=== PATIENT | male | born 1995 | race Two or more races ===

== ENCOUNTER 2017-10-14 10:22 | Emergency (ER) | payer OTHER ==
[2017-10-14 11:17] LABS: BASOPHILS # (AUTO) 0.1 10^3/uL (0.0-0.1); BASOPHILS % (AUTO) 1.3 %; EOSINOPHILS # (AUTO) 0.1 10^3/uL (0.0-0.7); EOSINOPHILS % (AUTO) 1.3 %; HGB - HEMOGLOBIN 13.7 g/dL (14.0-18.0); LYMPHOCYTES # (AUTO) 1.6 10^3/uL (1.5-3.5); LYMPHOCYTES % (AUTO) 35.6 %; MEAN CORPUSCULAR HEMOGLOBIN 29.3 pg (27.0-31.0); MEAN CORPUSCULAR HGB CONC 35.2 g/dL (32.0-36.0); MEAN CORPUSCULAR VOLUME 83.3 fL (80.0-94.0); MEAN PLATELET VOLUME 6.1 fL (7.4-11.4); MONOCYTES # (AUTO) 0.6 10^3/uL (0.0-1.0); NEUTROPHILS # (AUTO) 2.2 10^3/uL (1.5-6.6); NEUTROPHILS % (AUTO) 47.8 %; PLT - PLATELET COUNT 232 10^3/uL (130-450); RED BLOOD COUNT 4.68 10^6/uL (4.70-6.10); RED CELL DISTRIBUTION WIDTH 13.2 % (12.0-15.0); WHITE BLOOD COUNT 4.6 x10^3/uL (4.8-10.8)
[2017-10-14 11:29] LABS: ALBUMIN 4.8 g/dL (3.2-5.5); ALBUMIN/GLOBULIN RATIO 2.1 (1.0-2.2); BILIRUBIN,TOTAL 0.8 mg/dL (0.2-1.0); CREATININE 0.9 mg/dL (0.6-1.2); TOTAL PROTEIN 7.1 g/dL (6.7-8.2)
--- NOTE | 2017-10-14 12:04 | ED Physician Documentation ---
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 Denies any smoking, drugs, caffeine, energy drinks. States this happens once every few hours. It lasts for one heartbeat at a time. Has not had any chest pain, dyspnea, syncope. No family history of young cardiac disease. He is not on any medications. Review of Systems Constitutional: denies: Fever, Chills Cardiac: denies: Chest pain / pressure, Calf pain Respiratory: denies: Cough GI: denies: Nausea, Vomiting Skin: denies: Rash Musculoskeletal: denies: Neck pain, Back pain Neurologic: denies: Headache PD PAST MEDICAL HISTORY - Past Medical History Past Medical History: Yes Endocrine/Autoimmune: HyPOthyroidism Other Past Medical History: pt reports hypothyrodism as a child - Past Surgical History Past Surgical History: No - Social History Does the pt smoke?: No Smoking Status: Never smoker - Immunizations Immunizations are current?: Yes PD ED PE NORMAL - Vitals Vital signs reviewed: Yes - General General: Alert and oriented X 3, No acute distress - HEENT HEENT: Moist mucous membranes - Neck Neck: Supple, no meningeal sign - Cardiac Cardiac: RRR, No murmur, Strong equal pulses - Respiratory Respiratory: No respiratory distress, Clear bilaterally - Abdomen Abdomen: Soft, Non tender, Non distended - Derm Derm: Warm and dry - Extremities Extremities: No edema, No calf tenderness / cord - Neuro Neuro: Alert and oriented X 3 - Psych Psych: Normal mood, Normal affect Results - Vitals Vitals: Vital Signs - 24 hr 10/14/17 10/14/17 10:27 10:41 Temperature 36.5 C Heart Rate 81 Respiratory 18 Rate Blood Pressure 131/66 H Blood Pressure 131/66 H [Left] Blood Pressure 128/65 [Right] O2 Saturation 100 Oxygen O2 Source Room air - EKG (time done) 1033 Rate: Rate (enter#) (85) Rhythm: NSR [place]: Normal Intervals: Normal MO QRS: Normal Ischemia: Normal ST segments Computer interpretation: Agree with computer - Labs Labs: Laboratory Tests 10/14/17 10/14/17 10/14/17 10:31 11:00 11:00 WBC 4.6 L RBC 4.68 L Hgb 13.7 L Hct 39.0 L MCV 83.3 MCH 29.3 MCHC 35.2 RDW 13.2 Plt Count 232 MPV 6.1 L Neut # 2.2 Lymph # 1.6 [place] # 0.6 Eos # 0.1 Baso # 0.1 Absolute Nucleated RBC 0.00 Nucleated RBC % 0.1 Sodium 140 Potassium 3.7 Chloride 100 L Carbon Dioxide 23 Anion Gap 17.0 H BUN 13 Creatinine 0.9 Estimated GFR (MDRD) 107 Glucose 79 POC Whole Bld Glucose 58 L* Calcium 9.0 Total Bilirubin 0.8 AST 55 H ALT 41 Alkaline Phosphatase 46 Total Protein 7.1 Albumin 4.8 Globulin 2.3 Albumin/Globulin Ratio 2.1 Lipase 23 TSH 10/14/17 11:00 WBC RBC Hgb Hct MCV MCH MCHC RDW Plt Count MPV Neut # Lymph # [place] # Eos # Baso # Absolute Nucleated RBC Nucleated RBC % Sodium Potassium Chloride Carbon Dioxide Anion Gap BUN Creatinine Estimated GFR (MDRD) Glucose POC Whole Bld Glucose Calcium Total Bilirubin AST ALT Alkaline Phosphatase Total Protein Albumin Globulin Albumin/Globulin Ratio Lipase TSH 1.78 PD MEDICAL DECISION MAKING - ED course Complexity details: reviewed results, re-evaluated patient, considered differential, d/w patient ED course: Patient with occasional PVCs on the heart monitor. These correlate to his symptoms. No hemodynamic instability. No acute findings on laboratory testing or EKG. Will have him follow-up with his doctor as an outpatient for further care. Patient counseled regarding signs and symptoms for which I believe and urgent re-evaluation would be necessary. Patient with good understanding of and agreement to plan and is comfortable going home at this time This document was made in part using voice recognition software. While efforts are made to proofread this document, sound alike and grammatical errors may occur. Departure - Departure Disposition: 01 Home, Self Care Clinical Impression: PVC (premature ventricular contraction) Condition: Good Instructions: ED Palpitations Follow-Up: your,doctor in 1 week for recheck [Other] [facility] [Provider Group] Comments: Your labs and EKG are normal today. You had PVC's on the monitor. Follow up with your doctor for further care.
[2017-10-14 12:35] VITALS: BP 107/49
== END 2017-10-14 12:45 | disposition home or self-care (01) ==
LOC: ED 10:22
DX: I49.3 Ventricular premature depolarization (principal)
CPT/HCPCS: 36415; 80053; 83690; 84443; 85025; 93005; 99283

== ENCOUNTER 2019-01-14 08:40 | Outpatient (CLI) | payer OTHER ==
[2019-01-14] MEDS ORDERED: IOTHALAMATE MEGLUMINE 50 ML VIAL ONE (09:22)
[2019-01-14] MEDS ORDERED: BUFFERED LIDOCAINE 10 ML SYRINGE ONE ×2 (09:23→10:16)
[2019-01-14] MEDS ORDERED: GADOPENTETATE DIMEGLUMINE 5 ML VIAL IVP ONE ×3 (09:23→11:56)
[2019-01-14] MEDS ORDERED: BUFFERED LIDOCAINE 10 ML SYRINGE IU ONE (11:56)
[2019-01-14] MEDS ORDERED: IOTHALAMATE MEGLUMINE 50 ML VIAL IVP ONE (11:56)
--- NOTE | 2019-01-14 18:10 | XRAY Report ---
Reason: PAIN IN UNSPECIFIED SHOULDER Procedure Date: 01/14/2019 Accession Number: [id number] / [id number] Procedure: FL - Arthrogram Needle Placement CPT Code: FULL RESULT: EXAM: LEFT SHOULDER ARTHROGRAPHIC INJECTION WITH FLUOROSCOPIC GUIDANCE EXAM DATE: 01/14/2019 10:09 AM. CLINICAL HISTORY: Left shoulder pain COMPARISON: None. TECHNIQUE: The risks, benefits, and alternatives of the procedure were discussed with the patient. All questions were answered. Written and verbal consent were obtained. The left glenohumeral joint was marked under fluoroscopy and prepped and draped in a sterile manner. Local anesthesia was performed with 1% lidocaine. A 22-gauge needle was then inserted into the glenohumeral joint. 10 mL of a solution containing 10 cc 1% lidocaine, 4 cc iodinated contrast, and a 0.1 cc gadolinium contrast was then injected. The needle was removed without immediate complication. Other: None. Fluoroscopy Time: 36 seconds. Number of Images: 2. FINDINGS: Bones and joints: No fracture or subluxation. Injection: Fluoroscopic images demonstrate needle placement and contrast in the glenohumeral joint. No contrast extravasation outside of the glenohumeral joint. IMPRESSION: Successful fluoroscopically guided arthrographic injection of the left shoulder. RADIA
--- NOTE | 2019-01-14 18:12 | XRAY Report ---
Reason: PAIN IN UNSPECIFIED SHOULDER Procedure Date: 01/14/2019 Accession Number: [id number] / [id number] Procedure: FL - Arthrogram Needle Placement CPT Code: FULL RESULT: EXAM: RIGHT SHOULDER ARTHROGRAPHIC INJECTION WITH FLUOROSCOPIC GUIDANCE EXAM DATE: 01/14/2019 10:47 AM. CLINICAL HISTORY: Right shoulder pain COMPARISON: None. TECHNIQUE: The risks, benefits, and alternatives of the procedure were discussed with the patient. All questions were answered. Written and verbal consent were obtained. The right glenohumeral joint was marked under fluoroscopy and prepped and draped in a sterile manner. Local anesthesia was performed with 1% lidocaine. A 22-gauge needle was then inserted into the glenohumeral joint. 10 mL of a solution containing 11 cc lidocaine, 4 cc iodinated contrast, and 0.2 cc gadolinium contrast was then injected. The needle was removed without immediate complication. Other: None. Fluoroscopy Time: 48 seconds. Number of Images: 2. FINDINGS: Bones and joints: No fracture or subluxation. Injection: Fluoroscopic images demonstrate needle placement and contrast in the glenohumeral joint. No contrast extravasation outside of the glenohumeral joint. IMPRESSION: Successful fluoroscopically guided arthrographic injection of the right shoulder. RADIA
--- NOTE | 2019-01-15 12:09 | MRI Report ---
Reason: PAIN IN UNSPECIFIED SHOULDER Procedure Date: 01/14/2019 Accession Number: [id number] / [id number] Procedure: MRI - Arthrogram Shoulder LT CPT Code: FULL RESULT: EXAM: LEFT SHOULDER MRI ARTHROGRAM WITH CONTRAST EXAM DATE: 01/14/2019 10:56 AM. CLINICAL HISTORY: Pain in unspecified shoulder. COMPARISON: None. TECHNIQUE: Multiplanar, multisequence T1-weighted and fluid-sensitive sequences of the shoulder after an arthrographic injection of dilute gadolinium, dictated under a separate exam. Other: None. FINDINGS: Acromioclavicular Region: The acromion is type I. The acromioclavicular joint is unremarkable. Distal clavicle subcortical cystic degenerative changes. Mild spurring distal clavicle acromioclavicular joint. Negative for acromioclavicular joint increase fluid. Mild osteoarthritis acromioclavicular joint. Small subacromial subdeltoid bursa fluid collection Glenohumeral Region: No subluxation. No loose bodies. The articular cartilage is unremarkable. The glenohumeral ligaments and joint capsule are unremarkable. Bone Marrow: No fracture, marrow edema or bone lesions. Labrum: The labrum is unremarkable. Biceps Tendon: The long head of the biceps tendon and biceps rick are intact. Proximal intra-articular biceps tendinosis proximal to the bicipital groove. Musculature/Rotator Cuff: Negative for complete rotator cuff tear. Small 3 mm undersurface fluid signal partial tear distal anterior supraspinatus tendon. No edema or fatty atrophy. Thickening and intermediate signal distal supraspinatus tendon consistent with the supraspinous tendinosis. Other: Focal anterior superior shoulder subcutaneous susceptibility artifact likely from foreign body. IMPRESSION: 1. Negative for complete rotator cuff tear. 2. Small fluid collection subacromial subdeltoid bursa consistent with bursitis. 3. Small fluid signal 3 mm partial undersurface tear distal supraspinatus tendon. 4. Negative for labrum tear. 5. Mild osteoarthritis acromioclavicular joint. 6. Distal anterior supraspinatus tendinosis. 7. Proximal intra-articular biceps tendinosis proximal to the bicipital groove. RADIA
--- NOTE | 2019-01-15 15:20 | MRI Report ---
Reason: PAIN IN UNSPECIFIED SHOULDER Procedure Date: 01/14/2019 Accession Number: [id number] / [id number] Procedure: MRI - Arthrogram Shoulder RT CPT Code: FULL RESULT: EXAM: RIGHT SHOULDER MRI ARTHROGRAM WITH CONTRAST EXAM DATE: 01/14/2019 12:22 PM. CLINICAL HISTORY: Pain in unspecified shoulder. COMPARISON: MR arthrogram of left shoulder 01/14/2019. TECHNIQUE: Multiplanar, multisequence T1-weighted and fluid-sensitive sequences of the shoulder after an arthrographic injection of dilute gadolinium, dictated under a separate exam. Other: None. FINDINGS: Acromioclavicular Region: The acromion is type II. The acromioclavicular joint is unremarkable. The coracoacromial and coracoclavicular ligaments are intact. Small subacromial bursal fluid collection. Glenohumeral Region: No subluxation. No loose bodies. The articular cartilage is unremarkable. Cortical irregularity and subcortical 3 mm degenerative cyst posterior aspect greater tuberosity. Bone Marrow: No fracture, marrow edema or bone lesions. Labrum: The labrum is unremarkable. Biceps Tendon: Complete tear proximal biceps tendon biceps anchor with tendon retraction. Musculature/Rotator Cuff: Linear interstitial tear superior aspect subscapularis tendon 2 cm in length. Negative for infraspinatus tendon tear. Negative for supraspinatus tendon tear. Rotator cuff muscles are without atrophy or edema. No edema or fatty atrophy. Other: The subcutaneous tissues are unremarkable. IMPRESSION: 1. Complete tear proximal biceps tendon with tendon retraction. 2. Negative for complete rotator cuff tear. 3. Longitudinal interstitial tear superior aspect subscapularis tendon 2 cm in length. RADIA
== END 2019-01-14 08:41 | disposition home or self-care (01) ==
LOC: DI 08:40
PROVIDERS: ATTEND Orthopaedic Surgery
DX: M75.102 Unspecified rotator cuff tear or rupture of left shoulder, not specified as traumatic (principal); M19.012 Primary osteoarthritis, left shoulder; M67.922 Unspecified disorder of synovium and tendon, left upper arm; S46.211A Strain of muscle, fascia and tendon of other parts of biceps, right arm, initial encounter; M75.101 Unspecified rotator cuff tear or rupture of right shoulder, not specified as traumatic
CPT/HCPCS: 23350; 73222; 77002; Q9961

== ENCOUNTER 2019-03-07 06:03 | Day surgery (SDC) | payer OTHER ==
[2019-03-07] MEDS ORDERED: LIDOCAINE-MPF 2% 5 ML VIAL IM ONE (06:04)
[2019-03-07] MEDS ORDERED: SUGAMMADEX 200 MG/2 ML VIAL IVP ONE ×2 (06:04→11:15)
[2019-03-07] MEDS ORDERED: cefTRIAXone 2 GM VIAL ONE (06:26)
[2019-03-07] MEDS ORDERED: LACTATED RINGERS 1,000 ML IV ONE ×3 (06:50→12:03)
--- NOTE | 2019-03-07 06:56 | ANESTHESIA ---
Pre-Anesthesia VS, & Labs - Diagnosis right shoulder rotator cuff tear, biceps tendinitis - Procedure right shoulder rotator cuff repair, biceps tenodesis Vital Signs: Temp Pulse Resp BP Pulse Ox 36.2 C L 68 16 119/75 98 03/07/19 06:20 03/07/19 06:20 03/07/19 06:20 03/07/19 06:20 03/07/19 06:20 Height 5 ft 6 in Weight (kg) 95.25 kg Body Mass Index 35.5 - NPO >8 hours Home Medications and Allergies Home Medications: Ambulatory Orders Biotin 5 mg PO 02/24/19 Biotin 5 mg PO 02/24/19 Allergies/Adverse Reactions: Allergies Allergy/AdvReac Type Severity Reaction Status Date / Time No Known Drug Allergies Allergy Verified 02/24/19 09:45 Anes History & Medical History - Anesthetic History Anesthesia Complications: reports: No previous complications, Other-see comment (nose bleed during surgery) Family history of Anesthesia Complications: Denies Family history of Malignant Hyperthermia: Denies - Medical History Cardiovascular: reports: None Pulmonary: reports: None Gastrointestinal: Urinary: reports: None Musculoskeletal: reports: Other Endocrine/Autoimmune: reports: None Skin: reports: None Smoking Status: Never smoker - Surgical History Eyes Ears Nose Throat (EENT): Tonsil/Adenoidectomy Orthopedic: Other Exam General: Alert, Oriented x3, Cooperative, No acute distress Mouth Openin Fingerbreadth Neck Mobility: Normal Mallampati classification: II Thyromental Distance: 4-6 cm Respiratory: Lungs clear, Normal breath sounds, No respiratory distress, No accessory muscle use Cardiovascular: Regular rate, Normal S1, Normal S2, No murmurs Plan Anesthesia Type: General Consent for Procedure(s) Verified and Reviewed: No Code Status: Attempt Resuscitation ASA classification: 1-Healthy patient Is this case an emergency?: No
[2019-03-07] MEDS ORDERED: EPINEPHrine 1 MG/ML AMP ONE (07:18)
[2019-03-07] MEDS ORDERED: BUPIVACAINE 0.25% PF 30 ML VIAL ONE (07:36)
[2019-03-07] MEDS ORDERED: BUPIVACAINE 0.25% PF 30 ML VIAL SUBQ ONE ×2 (08:38→11:16)
[2019-03-07] MEDS ORDERED: KETOROLAC 30 MG/ML VIAL IVP ONE (10:00)
[2019-03-07] MEDS ORDERED: fentaNYL 100 MCG/2 ML VIAL IVP ONE (10:00)
[2019-03-07] MEDS ORDERED: MORPHINE 10 MG/ML VIAL IVP ONE (10:00)
[2019-03-07] MEDS ORDERED: ROCURONIUM 50 MG/5 ML VIAL IVP ONE (10:00)
[2019-03-07] MEDS ORDERED: ePHEDrine 50 MG/ML VIAL IVP ONE (10:00)
[2019-03-07] MEDS ORDERED: ONDANSETRON 40 MG/20 ML MDV IV ONE (10:00)
[2019-03-07] MEDS ORDERED: PROPOFOL 200 MG/20 ML VIAL IVP ONE (10:00)
[2019-03-07] MEDS ORDERED: ACETAMINOPHEN 1,000 MG/100 ML 100 ML IV ONE (10:00)
[2019-03-07] MEDS ORDERED: oxyCODONE 5 MG TABLET PO PRN (11:42)
[2019-03-07] MEDS ORDERED: ONDANSETRON 4 MG/2 ML VIAL IVP PRN (11:42)
--- NOTE | 2019-03-07 11:59 | OPERATIVE REPORT ---
Operative Report - Other Other Information/Narrative: Date of Surgery: 07 March 2019 Pre-Op Diagnosis: Right shoulder long head of biceps tendon tear, possible subscapularis tear, possible labral tear Procedure: Right shoulder diagnostic arthroscopy with limited debridement, subacromial decompression, open biceps tenodesis Postop Diagnosis: Right shoulder long head of biceps tendon tear. No subscapularis or labral injuries Primary Surgeon: Randy Mitchell Secondary Surgeon: None Complications: None EBL: 25 cc IMPLANTS: Fiber tach by [employer] POSTOPERATIVE PLAN: 0-2 weeks-Sling at all times. Pendulum exercises 5 times per day. 2-6 weeks-Passive and active range of motion of the shoulder without limita tions. No active flexion of the elbow 6-12 weeks-Gradually increase active flexion of the elbow. Shoulder strengthening focusing on rotator cuff and scapular stabilizers per protocol. 12 weeks and beyond-return to full activity EXAMINATION UNDER ANESTHESIA: ROM: Full Anterior load and shift: Normal Posterior load and shift: Normal Inferior sulcus: Normal ARTHROSCOPIC FINDINGS: Rotator interval: Injury to the interval could be seen. Biceps sling injury was seen Biceps tendon & SLAP: Long head of biceps tendon had completely torn from its insertion on the labrum it was not present in the shoulder. There was no SLAP tear Subscapularis: I probed this extensively and debrided synovial tissue from around it and followed the tendon down medially. There was no tear. Subscapularis insertion was normal Rotator Cuff: Intact HAGL: None Labrum: No tear Glenoid Cartilage: Normal Humeral Head Cartilage: Normal INDICATION FOR SURGERY: 23-year-old male started having shoulder pain 1 year ago and developed a small Andrew deformity. He denies having any particular injury. MRI and exam showed there to be a long head of biceps tendon tear. His exam was also concerning for rotator cuff pathology. Nonoperative managment failed to resolve symptoms. The risks, benefits, and alternatives were discussed. Risks included pain, bleeding, infection, damage to nearby structures, lack of symptom relief, implant complications, stiffness, need for further surgeries, DVT, PE, stroke, and even . He signed a written consent form. PROCEDURE IN DETAIL: The patient was met in the preoperative holding on the day of the procedure. Operative extremity was signed. Consent was verified. They desired to proceed. They were brought to the operating room and surrendered to anesthesia. Once general anesthesia was obtained they were placed in the supine position. He was then prepped and draped in the standard sterile fashion. A surgical timeout was held to be confirmed the patient procedure, identity, allergies, antibiotics, images. All were in agreement we proceeded. A 7 cm incision was made near the axillary fold centered over the pectoralis major tendon. Electrocautery was used to obtain hemostasis. The fascia was opened with dissection scissors. Blunt digital dissection was used to identify the intertubercular groove just under the pectoralis major tendon. The long hea d of the biceps tendon was visualized within this interval. The short head of the biceps was retracted with my finger. An injury to the biceps tendon was appreciated. I dissected distally and found scar tissue around the musculotendinous junction in association with the area of his arm that had been painful and lumpy. I freed all scar tissue from around this area and pulled on the biceps tendon and it had then had nice excursion. The proximal portion of the tendon had been caught on something higher up and it was not easily brought into the wound. I had some concern that it was still attached to the labrum so I did not attempt to pull it further into the wound without first looking at it through an arthroscopy. I left the biceps tendon in place and closed the skin with a running nylon. A sterile dressing was applied. He was then repositioned into the lateral decubitus position with the operative side up. An axillary roll was placed and all bony prominences were well-padded. The dressing on the biceps incision was removed and he was then prepped and draped in the standard sterile fashion. [place] was placed over the biceps tendon incision. Balance suspension was applied with 10 pounds. A surgical timeout was again held. A standard diagnostic arthroscopy was performed utilizing posterior and anterosuperior portals. The anterosuperior portal was created under direct visualization and localized with a spinal needle. The 7 mm cannula was placed anteriorly. The findings of the diagnostic arthroscopy can be found above. I probed the subscapularis extensively and used the shaver and burner to remove synovial tissue from around it so I could only identify the insertion. I also remove synovial tissue traveling medially to ensure the split tear seen on the MRI was not present and unstable. I was then satisfied the subscapularis insertion was normal. I probed all other tissues extensively and there was no other pathology within the shoulder. SUBACROMIAL DECOMPRESSION: The instruments and cannula were then removed from the glenohumeral joint. The scope trocar was placed in the posterior portal and the acromion was felt. It was then inserted just under the acromion scraping along the bone until the CA ligament was felt. The scope trocar was then brought just lateral to the CA ligament and out the anterior incision. The cannula was then brought over the scope trocar arthroscope were inserted. The arthroscope was backed up until the shaver and arthroscope in the subacromial space. The subacromial space was relatively well open and extensive bursitis was not seen. I did perform a bursectomy and then worked anteriorly to look for the biceps tendon within the groove. The biceps tendon was not seen. I then systemically debrided the bursa that was present using a sucker shaver and radiofrequency ablation wand. All soft tissue was debrided from the underside of the acromion and the posterior edge of the CA ligament was lifted. Care was taken to keep the deltoid fascia intact. The rotator cuff was then evaluated and there was no full-thickness tear. Final images were taken. Arthroscopic instruments were removed from the shoulder. I then remove the suture from the biceps tendon incision and through it off of the table. I then reapproach the biceps bluntly and retractors were placed. I used my finger to go under the biceps tendon and pulled relatively forcefully and the tendon was delivered out of the wound. A segal elevator was then used to debride all synovial tissue from the intertubercular groove. A fibertack was pl aced high within the groove. Both limbs of the fibertack were pulled on and it was well fixed. I then whipstitched the biceps tendon starting 2 cm proximal to the musculotendinous junction down to the musculotendinous junction and back up to the same 2 cm location with a single limb of the suture tack. The other suture was placed once through the tendon at the 2 cm location. I then cut all excess tendon off. The suture limb that was passed the single time was then pulled on and while the tendon was coming down to the bone the anchor came out of the bone. This was likely because excess tension was being placed onto it as the anchor was placed high within the groove and the tendon had scarred back a little bit. I then removed the suture anchor. I then placed a new fiber tack lower down in the groove but still beneath the pectoralis major insertion. I re-whipstitch the tendon and this time the tendon went nicely down to bone without any issue. The elbow was fully straightened and there was no excess tension on the repair site. I then tied 7 reverse half hitches alternating to secure the tendon in its place. The wound was then irrigated copiously. The portal sites were then closed with 3-0 Monocryl buried. The fascia was closed with 2-0 Vicryl. Any open incisions were closed with 2-0 Vicryl in the dermis and a running 3-0 Monocryl in the skin. Mastisol and Steri-Strips were applied. A sterile dressing and a sling was applied. A sling was placed. The patient was awakened and transferred to the recovery room.
[2019-03-07] MEDS ORDERED: HYDROmorphone 0.5 MG/0.5 ML SYRINGE ONE ×2 (12:00→12:15)
[2019-03-07] MEDS ORDERED: oxyCODONE 5 MG TABLET ONE (13:19)
[2019-03-07] MEDS ORDERED: ONDANSETRON 4 MG/2 ML VIAL ONE (13:59)
[2019-03-07 14:57] VITALS: BP 124/65
== END 2019-03-07 06:04 | disposition home or self-care (01) ==
LOC: SDS 06:03
PROVIDERS: ATTEND Orthopaedic Surgery
PROC: 0RHJ04Z Insertion of Internal Fixation Device into Right Shoulder Joint, Open Approach (ICD-10-PCS; 2019-03-07)
PROC: 0RNJ4ZZ Release Right Shoulder Joint, Percutaneous Endoscopic Approach (ICD-10-PCS; principal; 2019-03-07 08:00)
PROC: 0LS10ZZ Reposition Right Shoulder Tendon, Open Approach (ICD-10-PCS; 2019-03-07 08:00)
DX: S46.111A Strain of muscle, fascia and tendon of long head of biceps, right arm, initial encounter (principal)
CPT/HCPCS: 23430; 29822; A9270; C1713; J1170; J7120

== ENCOUNTER 2019-08-29 10:59 | Day surgery (SDC) | payer OTHER ==
[2019-08-29] MEDS ORDERED: LIDOCAINE 2% 10 ML MDV SUBQ ONE (11:00)
[2019-08-29] MEDS ORDERED: SUCCINYLCHOLINE 200 MG/10 ML VIAL IVP ONE (11:00)
[2019-08-29] MEDS ORDERED: MIDAZOLAM 2 MG/2 ML VIAL IVP ONE (11:00)
[2019-08-29] MEDS ORDERED: ONDANSETRON 4 MG/2 ML VIAL IVP ONE (11:00)
[2019-08-29] MEDS ORDERED: PROPOFOL 200 MG/20 ML VIAL IVP ONE (11:00)
[2019-08-29] MEDS ORDERED: DEXAMETHASONE 4 MG/ML VIAL IVP ONE (11:00)
[2019-08-29] MEDS ORDERED: KETOROLAC 30 MG/ML VIAL IVP ONE (11:00)
[2019-08-29] MEDS ORDERED: fentaNYL 100 MCG/2 ML VIAL IVP ONE (11:00)
[2019-08-29] MEDS ORDERED: cefTRIAXone 2 GM VIAL ONE (11:11)
[2019-08-29] MEDS ORDERED: SCOPOLAMINE PATCH TOP ONE (11:33)
[2019-08-29] MEDS ORDERED: LACTATED RINGERS 1,000 ML IV ONE ×2 (11:34→14:42)
--- NOTE | 2019-08-29 13:36 | ANESTHESIA ---
Pre-Anesthesia VS, & Labs - Diagnosis L AC joint arthritis - Procedure L DCE Vital Signs: Temp Pulse Resp BP Pulse Ox 36.4 C L 71 18 141/82 H 98 08/29/19 11:15 08/29/19 11:15 08/29/19 11:15 08/29/19 11:15 08/29/19 11:15 Height 5 ft 6 in Weight (kg) 113.4 kg Body Mass Index 35.5 - NPO >8 hours Home Medications and Allergies Home Medications: Ambulatory Orders Ibuprofen [Motrin] 600 mg PO Q6H PRN 08/25/19 Propranolol [Inderal] 10 mg PO BID 08/25/19 Ibuprofen [Motrin] 600 mg PO Q6H PRN 08/25/19 Propranolol [Inderal] 10 mg PO BID 08/25/19 Allergies/Adverse Reactions: Allergies Allergy/AdvReac Type Severity Reaction Status Date / Time No Known Drug Allergies Allergy Verified 08/25/19 10:38 Anes History & Medical History - Anesthetic History Anesthesia Complications: reports: No previous complications Family history of Anesthesia Complications: Denies Family history of Malignant Hyperthermia: Denies - Medical History Cardiovascular: reports: Hypertension Pulmonary: reports: None Gastrointestinal: reports: None Urinary: reports: None Musculoskeletal: reports: Other Endocrine/Autoimmune: reports: None Skin: reports: Other Smoking Status: Never smoker - Surgical History Eyes Ears Nose Throat (EENT): Tonsil/Adenoidectomy Orthopedic: Shoulder arthroplasty Exam General: Alert, Oriented x3, Cooperative Dental: WNL Mouth Openin Fingerbreadth Neck Mobility: Normal Mallampati classification: II Thyromental Distance: greater than 6 cm Respiratory: Lungs clear, Normal breath sounds, No respiratory distress Cardiovascular: Regular rate Neurological: Normal gait, Normal speech Mental/Cognitive Status: Alert/Oriented X3, Normal for patient Plan Anesthesia Type: General Consent for Procedure(s) Verified and Reviewed: Yes Code Status: Attempt Resuscitation ASA classification: 2-Mild systemic disease Is this case an emergency?: No
[2019-08-29] MEDS: BUPIVACAINE 0.25% PF 30 ML VIAL ONE ×2 (14:51→15:02)
[2019-08-29] MEDS ORDERED: ONDANSETRON 4 MG/2 ML VIAL IVP PRN (15:18)
[2019-08-29] MEDS ORDERED: oxyCODONE 5 MG TABLET PO PRN (15:18)
--- NOTE | 2019-08-29 15:18 | OPERATIVE REPORT ---
Operative Report - Other Other Information/Narrative: Date of Surgery: 29 August 2019 Pre-Op Diagnosis: Left acromioclavicular joint osteoarthritis Procedure: Left open distal clavicle excision Postop Diagnosis: Same Primary Surgeon: Randy Mitchell Secondary Surgeon: Atif Deras Complications: None EBL: 25 cc IMPLANTS: None POSTOPERATIVE PLAN: 0-2 weeks-Sling at all times. Pendulum exercises 5 times per day. 2-6 weeks-Passive and active range of motion without limitations. 6-12 weeks-Gradually increase strengthening focusing on rotator cuff and scapular stabilizers. 12 weeks-No limitations. EXAMINATION UNDER ANESTHESIA: ROM: Full Anterior load and shift: Stable Posterior load and shift: Stable Inferior sulcus: Stable FINDINGS: Osteoarthritis of the left acromioclavicular joint, disc and distal clavicle removed INDICATION FOR SURGERY: 38-year-old male with superior left shoulder pain for over a year that is worse with bench press and other activities. An injection into the AC joint provided near complete relief for months. An injection into the biceps tendon sheath provided minimal relief for hours. The decision was made to move forward with distal clavicle excision as an isolated procedure based on the results of the injections. Nonoperative managment failed to resolve symptoms. The risks, benefits, and alternatives were discussed. Risks included pain, bleeding, infection, damage to nearby structures, lack of symptom relief, implant complications, stiffness, need for further surgeries, DVT, PE, stroke, and even . The patient signed a written consent form. PROCEDURE IN DETAIL: The patient was met in the preoperative holding on the day of the procedure. Operative extremity was signed. Consent was verified. The patient desired to proceed. Once general anesthesia was obtained the patient was placed in the supine position with a bump under the scapula. The shoulder and arm were prepped and draped in the standard fashion. A surgical timeout was held to confirm the patient identity, procedure, procedure, laterality, allergies, images, and antibiotics. All were in agreement we proceeded. A 5 cm saber type incision was made in line with his tattoo, centered over the acromioclavicular joint. Electrocautery was used to obtain hemostasis. Full-t hickness skin flaps were made at the level of the fascia/joint capsule. A full- thickness longitudinal was made longitudinally to open the acromioclavicular joint. Electrocautery was used to dissect the joint capsule from the bony surfaces. 2 Homans were placed around the distal clavicle. Rongeur was used to debride the intra-articular disc. An 8 mm resection was measured and performed with a sagittal saw. Care was taken to ensure this cut was parallel to the joint surface. All sharp bony edges were rounded. A finger was placed with into the defect and the arm was adducted fully without any impingement in the joint. The joint was then irrigated copiously. A watertight capsular and fascial closure was performed with 0 Vicryl. The incision was closed with incisions for open procedures were closed with 2-0 Vicryl in the dermis and a running 3-0 Monocryl in the skin. Mastisol and Steri-Strips were applied. A sterile dressing and a sling was applied. The patient was awakened and transferred to the recovery room.
[2019-08-29] MEDS ORDERED: oxyCODONE 5 MG TABLET ONE (16:04)
[2019-08-29] MEDS ORDERED: ONDANSETRON 4 MG/2 ML VIAL ONE (16:48)
[2019-08-29 17:22] VITALS: BP 139/80
== END 2019-08-29 11:00 | disposition home or self-care (01) ==
LOC: SDS 10:59
PROVIDERS: ATTEND Orthopaedic Surgery
PROC: 0PBB0ZZ Excision of Left Clavicle, Open Approach (ICD-10-PCS; principal; 2019-08-29 14:00)
DX: M19.012 Primary osteoarthritis, left shoulder (principal); I10 Essential (primary) hypertension; Z79.899 Other long term (current) drug therapy

== ENCOUNTER 2020-03-08 13:19 | Outpatient (CLI) | payer OTHER ==
--- NOTE | 2020-03-08 13:51 | SLEEP CARE CONSULTATION ---
Information from patient questionnaire entered by Adia Justice. I have reviewed and concur with the information entered by Adia Justice. This document represents the service I personally performed and the decisions made by me, Jaleesa Thayer MD, [facility]. History of Present Illness Service Date and Time: 03/08/2020 1319 Reason for Visit: New patient Chief Complaint: reports: Observed pauses in breathing Duration of Symptoms: 1 year Usual bedtime: 10pm - 12am Time it takes to fall asleep: 1 hour Snores at night: Yes Observed to quit breathing while asleep: Yes Sleeps alone due to snoring: No Number of times waking at night: 15 times Reasons for waking at night: reports: Gasping for air Toss, Turn, or Twitch while sleeping: Yes Recalls having dreams: Yes Usually gets out of bed at: 3 am Feels refreshed in the morning: No Morning headache: Yes Sleepy or fatigued during the day: Yes Ever fallen asleep while driving: Yes Takes day naps: Yes Dreams during day naps: No Prior sleep studies: No Additional HPI information: The patient reports that his girlfriend saw him quit breathing. He snores and wakes up choking. He has morning headaches that go away after the first cup of coffee. She sleeps about 4 hours a night only and wakes up spontaneously at 3 am every day. During the day he is sleepy. [place] Sleepiness Scale sore is 16. - Parasomnia Symptoms Ever been unable to move upon waking from sleep: Yes Ever felt weak in the knees when startled or emotional: Yes Bothered by creepy, crawly, restless sensations in legs: Yes Problems with memory or concentration: Yes Subjective Initial [place] Sleepiness Scale score: 16 (in 2020) Past Medical History Past Medical History: reports: Anxiety, Depression Social History The patient's occupation is a Active . Patient is Single and lives in [place] Have you smoked in the past 12 months: No Alcohol use: No Caffeine use: No Family History Family history of sleep disordered breathing: No Allergies and Home Medications Drug allergies reviewed: Yes Home medication list reviewed: Yes Review of Systems Cardiovascular: reports: palpitations, leg or foot swelling Respiratory: denies: shortness of breath, wheeze, sputum production, chronic cough, other Gastrointestinal: reports: heartburn Urinary: denies: incontinence, frequency, urgency, impotence, other Neurological: denies: headaches, seizure, head trauma, disorientation, speech dysfunction, gait or balance problems, fainting or unconsciousness, other Psychiatric: reports: anxiety, depression Ear/Nose/Throat: reports: nose bleeds, wisdom teeth removed Endocrine: reports: sluggishness, increased appetite, unexplained weakness Musculoskeletal: reports: joint pain, neck pain, back pain, joint swelling, muscle pain or cramping, mobility problems Physical Exam Vital signs obtained and entered by: Deferred due to COVID-19 Height: 5 ft 6 in Weight: 280 lb Body Mass Index: 45.1 BMI Classification: Morbidly Obese Impression and Plan IMPRESSION: 1. Obstructive Sleep Apnea-Hypopnea Syndrome, as suggested by history of snoring, observed cessation of breath while asleep, frequent awakenings during the night, nocturnal choking, unrefreshed sleep, morning headache, cognitive impairment, and daytime hypersomnolence. Narrow oropharynx and obesity are common predisposing factors for obstructive sleep apnea-hypopnea syndrome. Pathophysiology of sleep-disordered breathing was discussed. I recommend proceeding to polysomnography to confirm the diagnosis and to assess severity. If he has significant sleep disordered breathing, a manual CPAP titration study will also be performed to find the optimal treatment pressure. I informed the patient of what the sleep studies involve and after some discussion, he agreed to proceed. Plan: 1. Schedule in-laboratory polysomnography+ manual CPAP titration study 2. Avoid long distance driving or when feeling sleepy. 3. Avoid alcohol, sedative and muscle relaxant around bedtime. 4. Attempt to lose weight. 5. Return in 1 to 2 weeks after the study to discuss results and initiate therapy. Visit Type: In Office Time Spent with Patient (minutes): 15 Provider Statement: I spent 100% of the Face to Face Visit with the patient with greater than 50% spent counseling the patient and coordination of care.
== END 2020-03-08 13:20 | disposition home or self-care (01) ==
LOC: SC 13:19
PROVIDERS: ATTEND Internal Medicine Pulmonary Disease
DX: R06.83 Snoring (principal); R06.81 Apnea, not elsewhere classified; G47.8 Other sleep disorders; R51 Headache; G47.10 Hypersomnia, unspecified; R41.89 Other symptoms and signs involving cognitive functions and awareness; F32.9 Major depressive disorder, single episode, unspecified; E66.01 Morbid (severe) obesity due to excess calories; Z68.42 Body mass index [BMI] 45.0-49.9, adult
CPT/HCPCS: 99203; 99212

== ENCOUNTER 2020-03-22 20:20 | Outpatient (CLI) | payer OTHER | END 2020-03-22 20:21 | disposition home or self-care (01) | LOC: SC 20:20 | PROVIDERS: ATTEND Internal Medicine Pulmonary Disease | DX: G47.33 Obstructive sleep apnea (adult) (pediatric) (principal); E66.01 Morbid (severe) obesity due to excess calories; Z68.42 Body mass index [BMI] 45.0-49.9, adult | CPT/HCPCS: 95810 ==

== ENCOUNTER 2020-06-17 09:47 | Outpatient (CLI) | payer OTHER ==
[2020-06-17 11:03] VITALS: BP 114/70
--- NOTE | 2020-06-17 11:03 | SLEEP CARE CONSULTATION ---
Information from patient questionnaire entered by Adia Justice. I have reviewed and concur with the information entered by Adia Justice. This document represents the service I personally performed and the decisions made by me, Parris Antonio, RN, MSN, [employer]. History of Present Illness Service Date and Time: 06/17/2020 0947 Previous diagnosis: Mild, Obstructive Sleep Apnea-Hypopnea Syndrome AHI: 5.2 (in 2019) Reason for follow up: first compliance Equipment type: CPAP Equipment obtained from: [employer] (no replacement supplies yet) Mask style: Full face Backup mask available: No (keep current mask when replaced as a spare ) Last cushion change: no cushion change yet Prior sleep studies: Yes Year and Where: 2019 Merged with [facility] Type of Sleep Study: Polysomnography Sleep Study - Results Prior sleep studies: No CPAP Compliance Data - Data Reviewed with Patient Average duration of nightly device use: 4.5 Compliance rate %: 70 Current pressure setting (cmH2O): 4-15 Average residual AHI: 1.4 (9.8 cmH20 is 95Th % pressure ) Subjective Missed days of use due to: reports: travel (forgot his CPAP to take on his trip) Patient concerns: reports: dry mouth, nose, throat (waking to pressure when he is on his back and then notices mild dry mouth 2 times a week. ). denies: aerophagia, mask discomfort, air blowing in eyes, mask leak noise, condensation in mask/hose, nasal congestion, epistaxis, other Observed to snore while using device: No Current pressure setting perceived as: comfortable On therapy, patient: reports: sleeping better, awakening more refreshed, being more awake and alert during the day, more rested overall, other (more energy and exercising more. He is also eating healthier to try to lose weight. ). denies: drowsiness while driving (significantly reduced with CPAP use ) Initial [place] Sleepiness Scale score: 16 (in 2019) Current [place] Sleepiness Scale score: 10 Allergies and Home Medications Known drug allergies: No Home medication list reviewed: No (no changes) Review of Systems Review of systems same as previous: Yes Physical Exam Blood Pressure: 114/70 Cuff size: large red Heart Rate: 58 O2 Saturation: 98 Height: 5 ft 6 in Weight: 277 lb 3.2 oz (trying to lose weight) Weight change since last visit: lost 12 pounds Body Mass Index: 44.7 BMI Classification: Morbidly Obese Impression and Plan 1. Obstructive Sleep Apnea-Hypopnea Syndrome, mild , with good treatment compliance and good apnea control. On CPAP therapy, the patient has better sleep quality and is more rested overall. Supply questions answered. Counseled to order his new supplies with rationale. Since he is from the [employer] in July, he is advised to contact them about continuing his insurance and check to make sure his CPAP is covered before separation if no insurance available after out. He is also moving to [place] late July after [place] separation to be near family. He was advised of process of continued care once moves by getting a referral from new PCP to see a sleep specialist. He is losing weight with a goal of losing 50-70 pounds initially. Currently he is eating more healthy and smaller portions. Health risks associated with obesity discussed. I will not change his auto CPAP so it can accommodate further weight loss. Symptoms to report for further pressure adjustment with weight loss discussed. To prevent forgetting CPAP when travels, he is advised to place his car keys on CPAP. Oral dryness can be reduced by adjusting humidity setting higher or heated hose lower or by adjusting both settings. Verbal instructions given on how to change humidity and heated hose settings with rationale explaining why to change. Patient advised that chronic oral dryness can affect dental health and advised to follow up with dentist. In addition, there are oral dryness products that can be used to reduce dryness such as Biotene products, Dry mouth rinse and Xylomelts. Patient to discuss best option with dentist. Insufficient sleep. Patient averages 4-6 hours of sleep nightly . Most people require 7-9 hours of sleep for optimal mental and physical function. Less than 5-6 hours of sleep consistently can contribute to health risks and mortality. Thus patient is advised to strive for a minimum of 7 hours of sleep. Obtaining more sleep will also reduce chance of drowsy driving. How to Sleep Better pamphlet given and reviewed. Methods discussed on how patient can achieve within their lifestyle. One is to abstain from electronics before bed except TV with light dimmed. Other electronics can affect endogenous melatonin level. Advised he can check [email or web address] to check for methods to fall asleep. Patient's apnea severity and rationale for treatment to reduce apnea, improve sleep quality and reduce cardiovascular and cerebrovascular events was reviewed. I also reviewed the benefit of consistent device use of CPAP for his depression/anxiety. * Continue auto CPAP pressure at 4-15 cmH2O * Implement methods to reduce oral dryness and insomnia prior to sleep * Obtain more sleep. * Notify me if snoring with mask or feeling that the pressure is too much or too little * Continue to lose weight * Call this office if any problems using CPAP * Return for follow up if concerns arise before move in July. Follow up recommended for: Weight management Visit Type: In Office Time Spent with Patient (minutes): 40 Provider Statement: I spent 100% of the Face to Face Visit with the patient with greater than 50% spent counseling the patient and coordination of care.
== END 2020-06-17 09:48 | disposition home or self-care (01) ==
LOC: SC 09:47
PROVIDERS: ATTEND Nurse Practitioner Family
DX: G47.33 Obstructive sleep apnea (adult) (pediatric) (principal); E66.01 Morbid (severe) obesity due to excess calories; Z68.41 Body mass index [BMI] 40.0-44.9, adult
CPT/HCPCS: 99212; 99215